=== PATIENT | female | born 1990 | race Two or more races ===

== ENCOUNTER → 2018-10-29 | Day surgery (SDC) | payer OTHER | END | disposition home or self-care (01) | LOC: ADM 10-28 13:15 → CIR.AMB 09:15 → AMB-ENDOS 09:15 → EDBD 09:15 → CIR.AMB 13:15 | DX: K57.32 Diverticulitis of large intestine without perforation or abscess without bleeding (principal); K64.8 Other hemorrhoids ==

== ENCOUNTER 2019-06-03 14:40 | Inpatient (IN) | payer OTHER ==
[~2019-06-03] VITALS: Ht 175.3 cm; Wt 86.2 kg
== END 2019-06-12 12:19 | disposition home or self-care (01) | DRG 331 ==
LOC: ER 14:40 → SURH 18:15
PROVIDERS: ADMIT Colon & Rectal Surgery
PROC: BW21Y0Z Computerized Tomography (CT Scan) of Abdomen and Pelvis using Other Contrast, Unenhanced and Enhanced (ICD-10-PCS; 2019-06-03)
PROC: 0DTN4ZZ Resection of Sigmoid Colon, Percutaneous Endoscopic Approach (ICD-10-PCS; principal; 2019-06-06)
PROC: 0DJD8ZZ Inspection of Lower Intestinal Tract, Via Natural or Artificial Opening Endoscopic (ICD-10-PCS; 2019-06-06)
DX: K57.32 Diverticulitis of large intestine without perforation or abscess without bleeding (principal); R10.32 Left lower quadrant pain; D72.828 Other elevated white blood cell count; E03.8 Other specified hypothyroidism; K57.30 Diverticulosis of large intestine without perforation or abscess without bleeding; K63.89 Other specified diseases of intestine; E83.42 Hypomagnesemia; F41.3 Other mixed anxiety disorders

== ENCOUNTER 2021-06-14 07:32 | Day surgery (SDC) | payer OTHER | END 2021-06-14 11:00 | disposition home or self-care (01) | LOC: AMB-ENDOS 07:32 | PROVIDERS: ATTEND Colon & Rectal Surgery | DX: D12.3 Benign neoplasm of transverse colon (principal); D12.4 Benign neoplasm of descending colon; K64.8 Other hemorrhoids; Z20.822 Contact with and (suspected) exposure to COVID-19; Z12.11 Encounter for screening for malignant neoplasm of colon ==

== ENCOUNTER 2024-05-20 06:29 | Day surgery (SDC) | payer OTHER ==
[2024-05-20] MEDS ORDERED: ONDANSETRON HCL 2 MG/ML VIAL IV ONE (10:30)
[2024-05-20] MEDS ORDERED: fentaNYL CITRATE 50 MCG/ML AMPUL IV PUSH ONE (10:30)
[2024-05-20] MEDS ORDERED: DIPHENHYDRAMINE HCL 50 MG/ML VIAL 1ML IV ONE (10:30)
[2024-05-20] MEDS ORDERED: MIDAZOLAM HCL 2 MG/2 ML VIAL IV ONE (10:30)
== END 2024-05-20 11:35 | disposition home or self-care (01) ==
LOC: AMB-ENDOS 06:29
PROVIDERS: ATTEND Colon & Rectal Surgery
DX: D12.3 Benign neoplasm of transverse colon (principal); K63.5 Polyp of colon; K62.1 Rectal polyp; R19.5 Other fecal abnormalities